=== PATIENT | female | born 1990 | race Caucasian/White ===

== ENCOUNTER 2021-02-22 11:31 | Emergency (ER) | payer OTHER, SELFPAY ==
--- NOTE | ~2021-02-22 | MR_ITS ---
EXAMINATION: MR LUMBAR SPINE WITHOUT CONTRAST CLINICAL INFORMATION: New bladder/bowel incontinence. COMPARISON: None available. TECHNIQUE: MRI of the lumbar spine was obtained using routine sequences without contrast. FINDINGS: Straightening of the normal lumbar lordosis. Normal, homogeneous marrow signal throughout. No suspicious marrow edema. The vertebral body heights are maintained. Mild degenerative disc disease at L4-L5 and L5-S1 with partial disc desiccation. T2 hyperintense annular fissure at L5-S1. The intervertebral disc heights are maintained. The conus medullaris terminates at the level of L2. The distal spinal cord is normal in appearance. No significant abnormalities of the paraspinal musculature. Limited evaluation of the intra-abdominal structures without significant abnormalities. The abdominal aorta is of normal contour and caliber. AXIAL SPINAL LEVELS: T12-L1: Normal annular contour. There is no facet joint arthropathy. There is no neural foraminal stenosis. There is no spinal canal stenosis. L1-L2: Normal annular contour. There is no facet joint arthropathy. There is no neural foraminal stenosis. There is no spinal canal stenosis. L2-L3: Normal annular contour.. There is no facet joint arthropathy. There is no neural foraminal stenosis. There is no spinal canal stenosis. L3-L4: Normal annular contour. There is no facet joint arthropathy. There is no neural foraminal stenosis. There is no spinal canal stenosis. L4-L5: Normal annular contour. There is mild bilateral facet joint arthropathy. There is no neural foraminal stenosis. There is no spinal canal stenosis. L5-S1: Mild diffuse disc bulge. There is mild bilateral facet joint arthropathy. There is no neural foraminal stenosis. There is no spinal canal stenosis. MR/MR lumbar spine wo con IMPRESSION: Minimal multilevel degenerative spondyloarthropathy of the lumbar spine as described in detail above. No overt spinal canal stenosis or nerve root compression.
[2021-02-22 13:14] VITALS: BP 108/74; PULSE 81; RESP 16; O2SAT 98; BMI 25.0
[2021-02-22 14:00] VITALS: BP 125/88; PULSE 73; RESP 18; O2SAT 99
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
[2021-02-22] MEDS: Acetaminophen 325 MG TABLET 975 MG PO (15:03)
[2021-02-22] MEDS: Ketorolac Tromethamine 30 MG/ML VIAL IM (15:04)
== END 2021-02-22 17:26 | disposition home or self-care (01) ==
PROVIDERS: Emergency Provider Emergency Medicine
DX: M51.36 Other intervertebral disc degeneration, lumbar region (principal); M54.41 Lumbago with sciatica, right side
CPT/HCPCS: 72148; 96372; 99284; J1885